=== PATIENT | female | born 1970 | race Caucasian/White ===

== ENCOUNTER 2016-11-25 13:12 | Emergency (ER) | payer OTHER ==
--- NOTE | 2016-12-21 16:38 | ER ---
ADMIT: 11/25/2016 RM/LOC: ER [facility] MR#: [id number] [address] [id number] MICHELLE SOLANOETTE Saida [address] [place] [address] Emergency Room Report SEX: F AGE: 46 : 1970 DATE: 11/25/2016 ADDENDUM: This patient comes to the ER because of a headache, sore throat, and fever that started last night. She has been nauseated. Rates her pain in her throat as 10/10. On physical exam, she does have significant pharyngeal edema with tonsillar exudate. Her temperature in the ER was 101.6. I wrote a prescription for amoxicillin and [place]. We will have her push fluids. Follow up with her primary as needed. Please see my T-sheet. VICTOR M Guillen / Armando Amos MD / mariajose JOB #: [id number] CC: Armando Amos MD, Attending Physician Shiv Jenkins MD, Family Physician
== END 2016-11-25 13:52 | disposition home or self-care (01) ==
LOC: ER 13:12
DX: J03.90 Acute tonsillitis, unspecified (principal); I10 Essential (primary) hypertension; Z79.899 Other long term (current) drug therapy